=== PATIENT | female | born 1985 | race Caucasian/White ===

== ENCOUNTER 2017-02-15 18:41 | Emergency (ER) | payer MEDICAID ==
[~2017-02-15] VITALS: Ht 157.5 cm; Wt 59.0 kg
[2017-02-15 19:15] VITALS: BP 129/70
[2017-02-15] MEDS ORDERED: MOTRIN600 M1 PO (19:20)
--- NOTE | 2017-02-15 19:24 | NUR ---
1ST CALL N/A IN ER LOBBY
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
--- NOTE | 2017-02-15 21:25 | NUR ---
Patient discharged with v/s stable BY ER MD DR CHAO. Written and verbal after care instructions given and explained BY ER MD DR CHAO . Patient verbalized understanding. Ambulatory with steady gait. All questions addressed prior to discharge BY ER MD DR CHAO. Advised to follow up with PMD.
[2017-02-15 21:26] VITALS: BP 122/76
== END 2017-02-15 21:26 | disposition home or self-care (01) ==
LOC: MED 18:41
DX: S02.2XXA Fracture of nasal bones, initial encounter for closed fracture (principal); W50.0XXA Accidental hit or strike by another person, initial encounter; Y93.89 Activity, other specified; Y92.89 Other specified places as the place of occurrence of the external cause; Y99.2 Volunteer activity

== ENCOUNTER 2017-06-25 08:18 | Emergency (ER) | payer MEDICAID ==
[~2017-06-25] VITALS: Ht 157.5 cm; Wt 63.5 kg
[~2017-06-25 08:18] MED LIST: MOTRIN600 M1 PO
[2017-06-25 08:24] VITALS: BP 140/69
[2017-06-25] MEDS: KETOROLAC 60 MG/2 ML VIAL IM ONE (08:55)
[2017-06-25] MEDS: cefTRIAXone 1,000 MG in LIDOCAINE 1% ED 2.1 ML IM ONE (08:55)
[2017-06-25 09:46] VITALS: BP 132/71
== END 2017-06-25 09:45 | disposition home or self-care (01) ==
LOC: MED 08:18
DX: J01.80 Other acute sinusitis (principal); Z79.899 Other long term (current) drug therapy
CPT/HCPCS: 81002; 81025; 96372; 99284; J0696; J1885; J2001